=== PATIENT | female | born 1985 | race American Indian/Alaskan Native ===

== ENCOUNTER 2021-03-28 20:44 | Emergency (ER) | payer MEDICAID ==
[2021-03-28] MEDS ORDERED: SODIUM CHLORIDE 0.9% 1000 ML 1,000 ML IV ONE (21:06)
[2021-03-28] MEDS ORDERED: METOCLOPRAMIDE 10 MG/2 ML INJ IV ONE (21:06)
[2021-03-28 21:31] LABS: Hematocrit 38.9 % (30.3-42.9); Hemoglobin 12.9 gm/dl (10.1-14.3); Mean Corpuscular HGB Conc 33 % (30-34); Mean Corpuscular Volume 96 fl (79-97); Platelet Count 158 K/mm3 (140-440); Red Blood Count 4.07 M/mm3 (3.65-5.03); Red Cell Distribution Width 14.6 % (13.2-15.2)
[2021-03-28 21:57] LABS: Alanine Aminotransferase 118 units/L (7-56); Albumin 5.2 g/dL (3.9-5); Blood Urea Nitrogen 8 mg/dL (7-17); Calcium 9.9 mg/dL (8.4-10.2); Hemolysis Index 7
[2021-03-28 21:59] LABS: BUN/Creatinine Ratio 11
[2021-03-28] MEDS ORDERED: POTASSIUM CHLORIDE ER 20 MEQ TAB PO ONE (22:15)
[2021-03-29 00:27] VITALS: BP 146/88
[2021-03-29] MEDS ORDERED: MAGNESIUM OXIDE 400 MG TAB PO ONE (22:16)
== END 2021-03-29 00:26 | disposition home or self-care (01) ==
LOC: ED 20:44
DX: K70.9 Alcoholic liver disease, unspecified (principal); R11.2 Nausea with vomiting, unspecified; R19.7 Diarrhea, unspecified; E86.0 Dehydration; Z79.899 Other long term (current) drug therapy
CPT/HCPCS: 36415; 80053; 83690; 84703; 85027; 96361; 96374; 99284; J2765; J7030; Q0162